=== PATIENT | male | born 1960 | race Caucasian/White ===

== ENCOUNTER → 2017-04-22 | Outpatient (CLI) | payer OTHER ==
[~2017-04-22] MED LIST: IOPAMIDOL (ISOVUE-300) 100 ML BTL ONE
== END ==
LOC: FIMAGING 15:50
PROVIDERS: ATTEND Urology
DX: R31.9 Hematuria, unspecified (principal); R93.49 Abnormal radiologic findings on diagnostic imaging of other urinary organs; I70.0 Atherosclerosis of aorta; M48.061 Spinal stenosis, lumbar region without neurogenic claudication; M51.26 Other intervertebral disc displacement, lumbar region
CPT/HCPCS: Q9967

== ENCOUNTER → 2017-06-04 | Outpatient (CLI) | payer OTHER | LOC: FIMAGING 10:51 | PROVIDERS: ATTEND Urology | DX: Z03.89 Encounter for observation for other suspected diseases and conditions ruled out (principal); C67.8 Malignant neoplasm of overlapping sites of bladder | CPT/HCPCS: Q9967 ==